=== PATIENT | female | born 2000 | race African-American/Black ===

== ENCOUNTER 2024-01-16 12:20 | Day surgery (SDC) | payer OTHER ==
[2024-01-16] MEDS: IRON SUCROSE INJECTION 200 MG in SODIUM CHLORIDE 100 ML IVPB ONE (12:54)
[2024-01-16 13:25] VITALS: BP 118/59; PULSE 81; RESP 17; TEMP 97.9
== END 2024-01-16 14:23 | disposition home or self-care (01) ==
LOC: FINFUSION 12:20 → FM/S 12:23 → FINFUSION 14:23
PROVIDERS: ATTEND Internal Medicine
PROC: 3E033GC Introduction of Other Therapeutic Substance into Peripheral Vein, Percutaneous Approach (ICD-10-PCS; principal; 2024-01-16)
DX: D50.9 Iron deficiency anemia, unspecified (principal)
CPT/HCPCS: 96365; J1756

== ENCOUNTER 2024-01-17 11:12 | Day surgery (SDC) | payer OTHER ==
[2024-01-17] MEDS: IRON SUCROSE INJECTION 200 MG in SODIUM CHLORIDE 100 ML IVPB ONE (11:52)
[2024-01-17 13:21] VITALS: BP 115/62; PULSE 92; RESP 16; TEMP 98.4
== END 2024-01-17 12:55 | disposition home or self-care (01) ==
LOC: FINFUSION 11:12 → FM/S 11:12 → FINFUSION 12:55
PROVIDERS: ATTEND Internal Medicine
PROC: 3E033GC Introduction of Other Therapeutic Substance into Peripheral Vein, Percutaneous Approach (ICD-10-PCS; principal; 2024-01-17)
DX: D50.9 Iron deficiency anemia, unspecified (principal)
CPT/HCPCS: 96365; J1756

== ENCOUNTER 2024-01-18 11:05 | Day surgery (SDC) | payer OTHER ==
[2024-01-18] MEDS: IRON SUCROSE INJECTION 200 MG in SODIUM CHLORIDE 100 ML IVPB ONE (11:45)
[2024-01-18 13:00] VITALS: BP 105/63; PULSE 83; RESP 17; TEMP 97.3
== END 2024-01-18 12:55 | disposition home or self-care (01) ==
LOC: FINFUSION 11:05 → FM/S 11:05 → FINFUSION 12:55
PROVIDERS: ATTEND Internal Medicine
PROC: 3E033GC Introduction of Other Therapeutic Substance into Peripheral Vein, Percutaneous Approach (ICD-10-PCS; principal; 2024-01-18)
DX: D50.9 Iron deficiency anemia, unspecified (principal)
CPT/HCPCS: 96365; J1756